=== PATIENT | male | born 1960 | race Caucasian/White ===

== ENCOUNTER 2017-01-20 08:09 | Day surgery (SDC) | payer MEDICARE ==
[~2017-01-20 08:09] MED LIST: APAP/BUTALBITAL1 TA1 PO; ASPIRIN 81MG TA81 MG PO; BACTRIM DS 8001 TA1 PO; CELEXA20 MG PO; CEPHALEXIN500 MG PO; HYDROCODONE1 TABLET PO; NAPROSYN 500MG500 MG PO; PREVACID 30MG C30 M1 PO; VALIUM 10MG TAB10 MG PO
[2017-01-20 08:40] LABS: HEMOGLOBIN 13.1 g/dL (14.1-18.0); LYMPH # 1.8 K/mm3 (0.7-4.5); LYMPH % 22.7 % (10-50)
[2017-01-20 08:46] LABS: BUN 15 mg/dL (7-18)
[2017-01-20 08:47] LABS: GFR (ESTIMATED) 77 ML/MIN (>60)
--- NOTE | 2017-01-20 10:56 | RADIOLOGY REPORT PS360 ---
CARDIAC CATHETERIZATION DATE OF CATHETERIZATION:01/20/2017 10:24 AM PROCEDURES: 1. Left heart catheterization 2. Left ventriculogram 3. Selective coronary angiogram INDICATION FOR TEST: 1. Known multivessel coronary artery disease 2. Class III angina despite 2 antianginal's Informed consent was obtained prior to the procedure. COMPLICATIONS: None ESTIMATED BLOOD LOSS: Less than 10 ml. TECHNIQUE: One percent lidocaine used to anesthetize the right anterior aspect of the wrist. The right radial artery was accessed via the Seldinger technique. A 6 [place] sheath was placed in the right radial artery. 2.5 mg of verapamil, 800 mcg of nitroglycerin and 5000 U Heparin were given through the arterial sheath. The Shruthi catheter was also used to perform left heart catheterization and left ventriculography. At the end of the procedure the patient was transferred to the post-op holding area in stable condition for arterial sheath removal. ANGIOGRAPHIC RESULTS: 1. The left main artery has an ostial 30-40% nonflow limiting stenosis 2. The left anterior descending artery has a stent in the ostial proximal segment which is widely patent with excellent proximal and distal transitioning area in the first diagonal artery originates in side this proximal LAD stent. The diagonal artery also has a stent which is widely patent with excellent ANDREA-3 flow. The remaining LAD has mild 20 and 30% nonflow limiting stenoses 3. The circumflex artery is a nondominant vessel and has an ostial 20-30% proximal 30% stenoses 4. The right coronary artery is a dominant vessel and has 30% proximal mid vessel 30-40% stenoses 5. The CORTEZ ventriculogram reveals normal 65% 6. The left ventricular end-diastolic pressure 10 mmHg IMPRESSION: 1. Coronary artery disease as described above 2. No interval change in left main disease 3. Widely patent stents 4. Normal ejection fraction 5. Normal left ventricular end-diastolic pressure 6. Patient is likely experiencing endothelial dysfunction causing his angina PLAN: 1. Antianginal medications including nitrates and Ranexa 2. Absolute tobacco avoidance 3. LDL less than 55 4. Risk factor modification
[2017-01-20 14:14] VITALS: BP 116/77
== END 2017-01-20 14:15 | disposition home or self-care (01) ==
LOC: CATHLAB 08:09
PROVIDERS: Internal Medicine
PROC: B2111ZZ Fluoroscopy of Multiple Coronary Arteries using Low Osmolar Contrast (ICD-10-PCS; 2017-01-20)
PROC: B2151ZZ Fluoroscopy of Left Heart using Low Osmolar Contrast (ICD-10-PCS; 2017-01-20)
PROC: 4A023N7 Measurement of Cardiac Sampling and Pressure, Left Heart, Percutaneous Approach (ICD-10-PCS; principal; 2017-01-20 10:15)
DX: I25.119 Atherosclerotic heart disease of native coronary artery with unspecified angina pectoris (principal); Z72.0 Tobacco use
CPT/HCPCS: C1725; C1769; J1644